=== PATIENT | male | born 2000 ===

== ENCOUNTER 2023-01-11 00:26 | Emergency (ER) | payer BC, SELFPAY ==
[2023-01-11] MEDS ORDERED: Proparacaine 0.5% Opth 15 ML BOT ONE (02:58)
[2023-01-11] MEDS ORDERED: Fluorescein Opthalmic Strip ONE (02:58)
== END 2023-01-11 03:47 | disposition home or self-care (01) ==
LOC: ERS 00:26
DX: H10.9 Unspecified conjunctivitis (principal)
CPT/HCPCS: 99283